=== PATIENT | female | born 1980 | race Caucasian/White ===

== ENCOUNTER → 2023-05-19 12:06 | Outpatient (BNVA) | payer BC, MEDICAID, SELFPAY | PROVIDERS: Visit Provider Nurse Practitioner Family | DX: N39.0 Urinary tract infection, site not specified (principal); M54.50 Low back pain, unspecified; R40.0 Somnolence | CPT/HCPCS: 81000; 87086 ==

== ENCOUNTER 2025-05-20 08:01 | Outpatient (CLI) | payer OTHER, SELFPAY ==
--- NOTE | 2025-05-20 08:07 | MM_ITS ---
WS: [id number] SCREENING DIGITAL BREAST TOMOSYNTHESIS MAMMOGRAM WITH CAD HISTORY: SCREENING COMPARISON: None available. Bilateral CC and MLO with tomosynthesis and synthetic mammography submitted. Computer aided detection analyzed. Breast composition: The breasts are heterogeneously dense, which may obscure small masses. Bilateral breast asymmetries are identified on this baseline examination and need further evaluation. Asymmetry in the RIGHT breast inferior medial quadrant measures 1.3 x 0.9 x 0.8 cm. Additional asymmetry in the LEFT breast towards 12:00 measures 13 x 11 x 15 mm. No suspicious grouping of calcifications. MM/MM [facility] tomosynthesis [id number] IMPRESSION: BI-RADS: 0 - Incomplete: Need additional imaging evaluation FOLLOW UP: Need Additional Imaging LEFT breast: Spot compression views (CC and MLO). True ML. Ultrasound to follow if abnormality persists. RIGHT breast: Spot compression views (CC and MLO). True ML. Ultrasound to follo w if abnormality persists.
== END 2025-05-20 08:02 | disposition home or self-care (01) ==
LOC: RAD 08:03
PROVIDERS: PCP Nurse Practitioner Family; Visit Provider Nurse Practitioner Family
DX: Z12.31 Encounter for screening mammogram for malignant neoplasm of breast (principal); R92.333 Mammographic heterogeneous density, bilateral breasts; N64.89 Other specified disorders of breast
CPT/HCPCS: 77063; 77067